=== PATIENT | female | born 1980 | race Two or more races ===

== ENCOUNTER 2017-09-18 22:02 | Emergency (ER) | payer SELFPAY ==
[~2017-09-18] VITALS: Ht 154.9 cm; Wt 74.8 kg
[2017-09-18] MEDS ORDERED: Fluconazole 100mg tab ORAL ONE (22:45)
--- NOTE | 2017-09-18 22:46 | Emergency Room Report ---
History of Present Illness General Chief Complaint: Female Urogenital Problems Source: Patient Present Illness HPI 37-year-old female, history of diabetes, supposed to be on metformin but has not been compliant with her medication, presenting with increased thirst, also thick vaginal discharge and discomfort. Also with burning on urination. States that she has a yeast infection. She has not been compliant with her medications, has had increased thirst and urinary frequency. No fever chills chest pain shortness of breath nausea or vomiting. Allergies: Coded Allergies: No Known Allergies (Unverified , 09/18/17) Patient History Past Medical History: see triage record Past Surgical History: none Pertinent Family History: none Last Menstrual Period: Now: No : 1 Para: 1 Reviewed Nursing Documentation: PMH: Agreed; PSxH: Agreed Nursing Documentation-PMH Hx Diabetes: Yes Review of Systems All Other Systems: negative except mentioned in HPI Physical Exam Vital Signs Date Time Temp Pulse Resp B/P (MAP) Pulse Ox O2 Delivery O2 Flow Rate FiO2 09/18/17 22:06 98.3 74 14 136/86 98 98.2 Sp02 EP Interpretation: reviewed, normal General Appearance: alert, GCS 15, non-toxic, moderate distress Head: normocephalic, atraumatic Eyes: bilateral eye normal inspection, bilateral eye PERRL, bilateral eye EOMI ENT: normal ENT inspection, normal pharynx, normal voice, moist mucus membranes Neck: normal inspection, full range of motion, supple Respiratory: normal inspection, lungs clear, normal breath sounds, no respiratory distress, no retraction, no wheezing, speaking full sentences, chest symmetrical Cardiovascular #1: normal inspection, regular rate, rhythm, no edema, normal capillary refill Cardiovascular #2: 2+ radial (R), 2+ radial (L) Gastrointestinal: normal inspection, non tender, soft, non-distended, no guarding Musculoskeletal: normal inspection, back normal, normal range of motion, non- tender Neurologic: normal inspection, alert, oriented x3, responsive, motor strength/ tone normal, sensory intact, normal gait, speech normal Psychiatric: normal inspection, judgement/insight normal, memory normal Skin: normal inspection, normal color, no rash, warm/dry, well hydrated, normal turgor Medical Decision Making Diagnostic Impression: Primary Impression: Hyperglycemia Additional Impression: Yeast vaginitis ER Course 37-year-old female with dysuria, urinary frequency, polyuria DDX: Hyperglycemia rule out DKA, yeast infection, UTI Plan: Obtain labs, ua, fluids consider insulin ER course: Patient given 2 normal saline boluses Fluconazole ordered Patient with hyperglycemia, not in DKA. Given fluids, given 10 units of insulin. Vital signs stable repeat accu check 294 Disposition: Patient will be discharged home. She is can be discharged with metformin, states that she does not have anymore at home. I also instructed the patient that it is important for her to follow-up with her doctor within one week, if her sugars not well controlled she may need to be placed on additional medications by her primary care doctor Please note that this Emergency Department Report was dictated using [employer] systems engineer technology software, occasionally this can lead to erroneous entry secondary to interpretation by the dictation equipment. EKG Diagnostic Results EP Interpretation: Yes Rate: normal Rhythm: NSR ST Segments: No acute changes ASA given to patient: No Rhythm Strip EP Interpretation: Yes Rate: 70 Rhythm: NSR, no PVCs, no ectopy Laboratory Tests Test 09/18/17 22:17 09/18/17 22:40 Urine Color Pale yellow Urine Appearance Clear Urine pH 6.5 (4.5-8.0) Urine Specific Sandoval 1.005 (1.005-1.035) Urine Protein Negative (NEGATIVE) Urine Glucose (UA) 4+ (NEGATIVE) H Urine Ketones Negative (NEGATIVE) Urine Occult Blood 2+ (NEGATIVE) H Urine Nitrite Negative (NEGATIVE) Urine Bilirubin Negative (NEGATIVE) Urine Urobilinogen Normal MG/DL (0.0-1.0) Urine Leukocyte Esterase 1+ (NEGATIVE) H Urine RBC 0-2 /HPF (0 - 2) Urine WBC 0-2 /HPF (0 - 2) Urine Squamous Epithelial Cells Occasional /LPF Urine Bacteria None /HPF (NONE) Urine HCG, Qualitative Negative (NEGATIVE) White Blood Count 8.1 K/UL (4.8-10.8) Red Blood Count 5.38 M/UL (4.20-5.40) Hemoglobin 14.6 G/DL (12.0-16.0) Hematocrit 44.8 % (37.0-47.0) Mean Corpuscular Volume 83 FL (80-99) Mean Corpuscular Hemoglobin 27.2 PG (27.0-31.0) Mean Corpuscular Hemoglobin Concent 32.7 G/DL (32.0-36.0) Red Cell Distribution Width 12.6 % (11.6-14.8) Platelet Count 149 K/UL (150-450) L Mean Platelet Volume 11.1 FL (6.5-10.1) H Neutrophils (%) (Auto) 62.8 % (45.0-75.0) Lymphocytes (%) (Auto) 28.8 % (20.0-45.0) Monocytes (%) (Auto) 6.0 % (1.0-10.0) Eosinophils (%) (Auto) 1.6 % (0.0-3.0) Basophils (%) (Auto) 0.9 % (0.0-2.0) Sodium Level 135 MMOL/L (136-145) L Potassium Level 4.0 MMOL/L (3.5-5.1) Chloride Level 98 MMOL/L (98-107) Carbon Dioxide Level 27 MMOL/L (21-32) Anion Gap 11 mmol/L (5-15) Blood Urea Nitrogen 15 mg/dL (7-18) Creatinine 1.1 MG/DL (0.55-1.30) Estimate Glomerular Filtration Rate 56.5 mL/min (>60) Glucose Level 645 MG/DL (74-106) *H Calcium Level 8.5 MG/DL (8.5-10.1) Magnesium Level 1.7 MG/DL (1.8-2.4) L Total Bilirubin 0.5 MG/DL (0.2-1.0) Aspartate Amino Transferase (AST) 25 U/L (15-37) Alanine Aminotransferase (ALT) 61 U/L (12-78) Alkaline Phosphatase 229 U/L (46-116) H Total Protein 7.4 G/DL (6.4-8.2) Albumin 3.3 G/DL (3.4-5.0) L Globulin 4.1 g/dL Albumin/Globulin Ratio 0.8 (1.0-2.7) L Acetone Level Negative (NEGATIVE) Last Vital Signs Date Time Temp Pulse Resp B/P (MAP) Pulse Ox O2 Delivery O2 Flow Rate FiO2 09/18/17 22:06 98.3 74 14 136/86 98 98.2 Disposition: HOME, SELF-CARE Condition: Improved Scripts Metformin Hcl* (METFORMIN HCL*) 500 Mg Tablet 500 MG ORAL TWICE A DAY for 30 Days, #60 TAB Prov: Hui Lipscomb M.D. 09/19/17 Referrals: NOT CHOSEN [facility]/,REFERRING (PCP) Hui Lipscomb M.D. Sep 18, 2017 22:46
[2017-09-18 22:48] LABS: BASOPHILS % (AUTO) 0.9 % (0.0-2.0); EOSINOPHILS % (AUTO) 1.6 % (0.0-3.0); HEMATOCRIT 44.8 % (37.0-47.0); HEMOGLOBIN 14.6 G/DL (12.0-16.0); LYMPHOCYTES % (AUTO) 28.8 % (20.0-45.0); MEAN CORPUSCULAR VOLUME 83 FL (80-99); NEUTROPHILS % (AUTO) 62.8 % (45.0-75.0); PLATELET COUNT 149 K/UL (150-450); RED BLOOD COUNT 5.38 M/UL (4.20-5.40); RED CELL DISTRIBUTION WIDTH 12.6 % (11.6-14.8); WHITE BLOOD COUNT 8.1 K/UL (4.8-10.8)
[2017-09-18 22:50] LABS: APPEARANCE,URINE CLEAR; BILIRUBIN, URINE NEGATIVE (NEGATIVE); COLOR,URINE PALE YELLOW; GLUCOSE, URINE (UA) 4+ (NEGATIVE); KETONES,URINE NEGATIVE (NEGATIVE); LEUKOCYTE ESTERASE ,URINE 1+ (NEGATIVE); NITRITE,URINE NEGATIVE (NEGATIVE); PH,URINE 6.5 (4.5-8.0); PROTEIN,URINE NEGATIVE (NEGATIVE); UROBILINOGEN,URINE NORMAL MG/DL (0.0-1.0)
[2017-09-18 23:10] LABS: ALANINE AMINOTRANSFERASE 61 U/L (12-78); ALBUMIN 3.3 G/DL (3.4-5.0); ALBUMIN/GLOBULIN RATIO 0.8 (1.0-2.7); ALKALINE PHOSPHATASE 229 U/L (46-116); ANION GAP 11 mmol/L (5-15); ASPARTATE AMINO TRANSFERASE 25 U/L (15-37); BILIRUBIN,TOTAL 0.5 MG/DL (0.2-1.0); BLOOD UREA NITROGEN 15 mg/dL (7-18); CALCIUM 8.5 MG/DL (8.5-10.1); CARBON DIOXIDE 27 MMOL/L (21-32); CHLORIDE 98 MMOL/L (98-107); CREATININE 1.1 MG/DL (0.55-1.30); SODIUM 135 MMOL/L (136-145)
[2017-09-19] MEDS ORDERED: METFORMIN HCL500 M1 ORAL (00:37)
[2017-09-19 01:17] VITALS: BP 128/89
[2017-09-19 01:21] VITALS: BP 128/89
--- NOTE | 2017-09-20 18:13 | Cardiology Report ---
APPROVED REPORT EKG Measurement Heart [id number] Normal sinus rhythm Nonspecific T wave abnormality Abnormal ECG
== END 2017-09-19 01:22 | disposition home or self-care (01) ==
LOC: EMR 22:26
DX: E11.65 Type 2 diabetes mellitus with hyperglycemia (principal); Z91.14 Patient's other noncompliance with medication regimen; B37.3 Candidiasis of vulva and vagina
CPT/HCPCS: 36415; 80053; 81003; 81025; 82009; 82962; 83735; 85025; 93005; 96374; 96375; 99284; J1815

== ENCOUNTER → 2017-10-30 | Emergency (ER) | payer SELFPAY ==
[~2017-10-30] VITALS: Ht 154.9 cm; Wt 72.6 kg
[~2017-10-30] MED LIST: METFORMIN HCL500 M1 ORAL
[2017-10-30 12:58] VITALS: BP 114/80
--- NOTE | 2017-10-30 13:47 | Emergency Room Report ---
History of Present Illness General Chief Complaint: Abdominal Pain Source: Patient Present Illness HPI Patient states that she got an MRI for chronic low back pain that she had been having for many years. She states this was done by [employer]. She states she received the report and on the impression it says that she has a large cystic focus with internal debris in the left ovary which measures 4.5 cm x 3.9 cm and its widest dimensions. This is consistent with a hemorrhagic ovarian cyst. Suggest ultrasound follow-up. The patient states that she was told to follow up with her primary care physician for an ultrasound. She has some pain occasionally in this location. She denies pain at this time. She has chronic back pain. She denies fever or chills. She denies abnormal vaginal discharge or bleeding. She has no other complaints. Allergies: Coded Allergies: No Known Allergies (Unverified , 09/18/17) Patient History Past Medical History: none, DM Social History: Denies: smoking, alcohol use, drug use Last Menstrual Period: 09/2016 Now: No Reviewed Nursing Documentation: PMH: Agreed; PSxH: Agreed Nursing Documentation-PMH Past Medical History: No History, Except For Hx Diabetes: Yes Review of Systems All Other Systems: negative except mentioned in HPI Physical Exam Vital Signs Date Time Temp Pulse Resp B/P (MAP) Pulse Ox O2 Delivery O2 Flow Rate FiO2 10/30/17 12:58 98.1 80 16 114/80 95 Room Air 98.1 Sp02 EP Interpretation: reviewed, normal General Appearance: no apparent distress, alert, GCS 15, non-toxic Head: normocephalic, atraumatic Eyes: bilateral eye normal inspection, bilateral eye PERRL ENT: hearing grossly normal, normal pharynx, no angioedema, normal voice Neck: full range of motion, supple/symm/no masses Respiratory: no respiratory distress, no retraction, no accessory muscle use, speaking full sentences Gastrointestinal: soft, non-distended, no guarding, no rebound, tenderness - mild ttp LLQ Rectal: deferred Musculoskeletal: gait/station normal Neurologic: alert, oriented x3, responsive, motor strength/tone normal, sensory intact, speech normal Psychiatric: judgement/insight normal, memory normal, mood/affect normal, no suicidal/homicidal ideation Skin: normal color, no rash, warm/dry, well hydrated Medical Decision Making Diagnostic Impression: Primary Impression: Ovarian cyst ER Course This patient has an MRI that shows findings consistent with a left ovarian cyst. The patient's abdominal exam is benign. I did offer the patient a pelvic ultrasound, however, after further discussion this patient to get this as an outpatient and that I did not feel this was a medical emergency, the patient decided to leave and obtain the ultrasound by her primary care physician. She states that she has a child that she needs to attend to and that if she can do it as an outpatient she would prefer that. I did educate her that she would need an pelvic ultrasound and then a repeat pelvic ultrasound again in 2-3 cycles to monitor the cyst. Overall, the patient's evaluation is benign and reassuring. The patient was given very close return precautions and follow-up instructions. The labs and ultrasound that I had ordered were not done or obtained secondary to the patient preferring to follow-up with her primary care physician as an outpatient. Last Vital Signs Date Time Temp Pulse Resp B/P (MAP) Pulse Ox O2 Delivery O2 Flow Rate FiO2 10/30/17 12:58 98.1 80 16 114/80 95 Room Air 98.1 Disposition: HOME, SELF-CARE Condition: Stable RUBIN MONTERROSO D.O. October 30, 2017 13:47
== END | disposition home or self-care (01) ==
LOC: EMR 13:32
DX: N83.202 Unspecified ovarian cyst, left side (principal); M54.5 Low back pain; E11.9 Type 2 diabetes mellitus without complications
CPT/HCPCS: 99282

== ENCOUNTER 2017-12-03 16:13 | Emergency (ER) | payer SELFPAY ==
[~2017-12-03] VITALS: Ht 154.9 cm; Wt 69.4 kg
[2017-12-03 17:03] VITALS: BP 123/78
--- NOTE | 2017-12-03 17:28 | Emergency Room Report ---
History of Present Illness General Chief Complaint: Vaginal Source: Patient Present Illness HPI 37-year-old female presents to the emergency department for evaluation of left- sided ovarian cyst which was incidentally found on her MRI. Patient denies pain at the moment but she states that 2 months she was having chronic left- sided adnexal pain that she would rate as 6 out of 10 in severity with radiation to the back. Patient is worried that this could be cancer as she states that many of her family members have due to ovarian cancer. Patient denies nausea, vomiting. Patient states that she is not sexually active with the opposite sex. She denies urinary frequency, hematuria, urgency , vaginal discharge, swollen tender lymph nodes, night sweats, significant changes in weight. Patient denies acute onset of her left-sided adnexal pain. She denies tenderness to palpation. She denies trauma or fall. She states that she is currently on her menstrual cycle however she reports that she had a period twice this month. Pt. denies excessive blood loss, dizziness or syncope. Allergies: Coded Allergies: No Known Allergies (Unverified , 09/18/17) Patient History Past Medical History: see triage record Past Surgical History: none Pertinent Family History: other - cancer Last Menstrual Period: 11/21/17 Now: No Reviewed Nursing Documentation: PMH: Agreed; PSxH: Agreed Nursing Documentation-PMH Hx Diabetes: Yes Review of Systems All Other Systems: negative except mentioned in HPI Physical Exam Vital Signs Date Time Temp Pulse Resp B/P (MAP) Pulse Ox O2 Delivery O2 Flow Rate FiO2 12/03/17 16:25 98.2 86 19 123/78 96 Room Air 98.2 Sp02 EP Interpretation: reviewed, normal General Appearance: no apparent distress, alert, GCS 15, non-toxic Head: normocephalic, atraumatic ENT: hearing grossly normal, normal voice Neck: full range of motion Respiratory: lungs clear, normal breath sounds, speaking full sentences Cardiovascular #1: regular rate, rhythm Rectal: deferred Genitourinary: adnexa normal, deferred - pelvic deferred. Musculoskeletal: back normal, gait/station normal, normal range of motion, non- tender Neurologic: alert, oriented x3, responsive, motor strength/tone normal, sensory intact, normal gait, speech normal, grossly normal Psychiatric: judgement/insight normal, anxious - moderate anxiousness/ worry regarding incidental finging. given family hx. Skin: normal color, no rash, warm/dry Medical Decision Making PA Attestation Dr. Lipscomb is my supervising Physician whom patient management has been discussed with. Diagnostic Impression: Primary Impression: Ovarian cyst Qualified Codes: N83.209 - Unspecified ovarian cyst, unspecified side Additional Impression: Family history of cancer ER Course 37-year-old female presents to the emergency department for evaluation of left- sided ovarian cyst which was incidentally found on her MRI. Patient denies pain at the moment but she states that 2 months she was having chronic left- sided adnexal pain that she would rate as 6 out of 10 in severity with radiation to the back. Patient is worried that this could be cancer as she states that many of her family members have due to ovarian cancer. Patient denies nausea, vomiting. Patient states that she is not sexually active with the opposite sex. She denies urinary frequency, hematuria, urgency , vaginal discharge, swollen tender lymph nodes, night sweats, significant changes in weight. Patient denies acute onset of her left-sided adnexal pain. She denies tenderness to palpation. She denies trauma or fall. She states that she is currently on her menstrual cycle however she reports that she had a period twice this month. Pt. denies excessive blood loss, dizziness or syncope. Ddx considered but are not limited to Diverticulitis, acute appy, ovarian torsion, ectopic , PID tubo-ovarian abscess, ovarian cyst. Vital signs: are WNL, pt. is afebrile H&PE are most consistent with suspected ovarian cyst, Clinical presentation does not suggest acute torsion. No tenderness ORDERS: -Pelvic exam Complete: Pt. deferred. ED INTERVENTIONS: - I discussed with this patient that her presentation at the moment does not make me suspicious of an acute emergent condition. Encouraged patient to follow up with an [facility] regarding incidental findings on her recent MRI. I discussed with this patient that if she has any changes in her symptoms such as worsening of pain or new symptoms she should return immediately to the ER and at that point we will evaluate her for possible emergent condition. I explained to this patient that checking for cancer is not a routine examination that is performed in the emergency department. DISCHARGE: At this time pt. is stable for d/c to home. Will provide printed patient care instructions, and any necessary prescriptions. Care plan and follow up instructions have been discussed with the patient prior to discharge. Last Vital Signs Date Time Temp Pulse Resp B/P (MAP) Pulse Ox O2 Delivery O2 Flow Rate FiO2 12/03/17 17:03 98.2 69 19 123/78 96 Room Air 98.2 Disposition: HOME, SELF-CARE Condition: Stable Scripts Ibuprofen* (MOTRIN*) 600 Mg Tablet 600 MG ORAL THREE TIMES A DAY, #20 TAB 0 Refills Prov: Angelita Corbett 12/03/17 Referrals: NOT CHOSEN [facility],REFERRING (PCP) Patient Instructions: Ovarian Cyst Additional Instructions: Take medications as directed. Follow up with an OBGYN within 3 days, even if your symptoms have resolved. * refer to provided list of primary care clinics if you do not already have a primary care provider. Return sooner to ED if new symptoms occur, or current symptoms become worse. - Please note that this Emergency Department Report was dictated using [employer].inmitochondrial disorders counselor technology software, occasionally this can lead to erroneous entry secondary to interpretation by the dictation equipment. Angelita Corbett Dec 03, 2017 17:28
[2017-12-03] MEDS ORDERED: IBUPROFEN600 MG ORAL (17:38)
[2017-12-03 18:01] VITALS: BP 123/78
== END 2017-12-03 18:02 | disposition home or self-care (01) ==
LOC: EMR 17:00
DX: N83.209 Unspecified ovarian cyst, unspecified side (principal); E11.9 Type 2 diabetes mellitus without complications; Z80.41 Family history of malignant neoplasm of ovary
CPT/HCPCS: 99283

== ENCOUNTER 2019-01-15 11:08 | Emergency (ER) | payer MEDICAID ==
[~2019-01-15] VITALS: Ht 154.9 cm; Wt 72.6 kg
[~2019-01-15 11:08] MED LIST changes: +IBUPROFEN600 MG ORAL
[2019-01-15 11:43] VITALS: BP 105/69
[2019-01-15] MEDS ORDERED: ZOFRAN4 M3 ORAL (11:44)
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
--- NOTE | 2019-01-15 11:46 | NUR ---
ED Nurse Note: pt walked in c/o diarrhea x 2 days. ERMD eval done urine sent to lab pt denies pain, n/v.
[2019-01-15 12:01] VITALS: BP 105/69
--- NOTE | 2019-01-15 12:02 | NUR ---
ER DISCHARGE NOTE: Patient is cleared to be discharged per ERMD, pt is aox4, on room air, with stable vital signs. pt was given dc and prescription instructions, pt was able to verbalize understanding, pt id band and iv site removed without complications. pt is able to ambulate with steady gait. pt took all belongings.
== END 2019-01-15 11:56 | disposition home or self-care (01) ==
LOC: EMR 11:21
DX: R19.7 Diarrhea, unspecified (principal); R11.2 Nausea with vomiting, unspecified; E11.9 Type 2 diabetes mellitus without complications
CPT/HCPCS: 81025; 99283

== ENCOUNTER 2019-08-17 18:45 | Emergency (ER) | payer MEDICAID ==
[~2019-08-17] VITALS: Ht 154.9 cm; Wt 72.6 kg
[~2019-08-17 18:45] MED LIST changes: +ZOFRAN4 M3 ORAL
--- NOTE | 2019-08-17 19:00 | NUR ---
ED Nurse Note: PT WALKED IN TO ED C/O UNCONTROLLED/ELEVATED BS. PT STATES BS OF 396 TODAY. PT STATES TAKING METFORMIN LAST ON 3PM WITH MEAL. PT VSS, BS AT BEDSIDE 186. WILL CONTINUE TO MONITOR PATIENT.
--- NOTE | 2019-08-17 19:13 | Emergency Room Report ---
History of Present Illness General Chief Complaint: Abnormal Labs Source: Patient Present Illness HPI Patient presents for complaints of elevated glucose levels patient reports that She has had readings in the 300 range This all started when she caught a cold several days ago She still has a mild cough otherwise denies any chest pain denies any vomiting or diarrhea patient's Accu-Chek at bedside was 160 and reports that this is improved compared to previous Denies any focal weakness denies any headache Denies any neck pain or photophobia Allergies: Coded Allergies: No Known Allergies (Unverified , 09/18/17) Patient History Past Medical History: see triage record Last Menstrual Period: 1 month Now: No Reviewed Nursing Documentation: PMH: Agreed; PSxH: Agreed Nursing Documentation-PMH Past Medical History: No History, Except For Hx Diabetes: Yes Hx Gastrointestinal Problems: Yes Review of Systems All Other Systems: negative except mentioned in HPI Physical Exam Vital Signs Date Time Temp Pulse Resp B/P (MAP) Pulse Ox O2 Delivery O2 Flow Rate FiO2 08/17/19 18:56 98.2 95 20 128/84 (99) 97 Room Air Sp02 EP Interpretation: reviewed, normal General Appearance: well appearing, no apparent distress Head: normocephalic, atraumatic Eyes: bilateral eye PERRL, bilateral eye EOMI ENT: hearing grossly normal, normal pharynx, TMs + canals normal, uvula midline Neck: full range of motion, supple, no meningismus, no bony tend Respiratory: lungs clear, normal breath sounds, no rhonchi, no respiratory distress, no retraction, no accessory muscle use Cardiovascular #1: normal peripheral pulses, regular rate, rhythm, no edema, no gallop, no JVD, no murmur Gastrointestinal: normal bowel sounds, non tender, soft, no mass, no organomegaly, non-distended, no guarding, no hernia, no pulsatile mass, no rebound Genitourinary: no CVA tenderness Musculoskeletal: normal inspection Neurologic: motor strength/tone normal, manager marketing sales III-XII nml as tested, oriented x3 , sensory intact, responsive Psychiatric: mood/affect normal Skin: no rash Lymphatic: normal inspection, no adenopathy Medical Decision Making Diagnostic Impression: Primary Impression: Hyperglycemia ER Course Multiple differentials including but not limited to sepsis, poor glucose control , poor diet, dehydration, acidosis entertained Patient's blood work does not reveal any signs of acidosis Glucose level has improved patient was also further IV hydrated Patient does have URI symptoms Possibly causing difficulty with glucose control patient is encouraged to follow closely with primary physician and discuss further testing and intervention Labs Test 08/17/19 19:00 08/17/19 19:45 Urine Color Pale yellow Urine Appearance Slightly cloudy Urine pH 5 (4.5-8.0) Urine Specific [place] 1.020 (1.005-1.035) Urine Protein Negative (NEGATIVE) Urine Glucose (UA) Negative (NEGATIVE) Urine Ketones Negative (NEGATIVE) Urine Blood Negative (NEGATIVE) Urine Nitrite Negative (NEGATIVE) Urine Bilirubin Negative (NEGATIVE) Urine Urobilinogen Normal MG/DL (0.0-1.0) Urine Leukocyte Esterase 1+ (NEGATIVE) Urine RBC 0-2 /HPF (0 - 2) Urine WBC 2-4 /HPF (0 - 2) Urine Squamous Epithelial Cells Many /LPF (NONE/OCC) Urine Bacteria Few /HPF (NONE) White Blood Count 12.5 K/UL (4.8-10.8) Red Blood Count 4.76 M/UL (4.20-5.40) Hemoglobin 12.8 G/DL (12.0-16.0) Hematocrit 38.1 % (37.0-47.0) Mean Corpuscular Volume 80 FL (80-99) Mean Corpuscular Hemoglobin 27.0 PG (27.0-31.0) Mean Corpuscular Hemoglobin Concent 33.7 G/DL (32.0-36.0) Red Cell Distribution Width 11.6 % (11.6-14.8) Platelet Count 215 K/UL (150-450) Mean Platelet Volume 10.7 FL (6.5-10.1) Neutrophils (%) (Auto) 60.2 % (45.0-75.0) Lymphocytes (%) (Auto) 28.6 % (20.0-45.0) Monocytes (%) (Auto) 6.5 % (1.0-10.0) Eosinophils (%) (Auto) 3.1 % (0.0-3.0) Basophils (%) (Auto) 1.7 % (0.0-2.0) Sodium Level 140 MMOL/L (136-145) Potassium Level 3.6 MMOL/L (3.5-5.1) Chloride Level 103 MMOL/L (98-107) Carbon Dioxide Level 25 MMOL/L (21-32) Anion Gap 13 mmol/L (5-15) Blood Urea Nitrogen 14 mg/dL (7-18) Creatinine 0.7 MG/DL (0.55-1.30) Estimat Glomerular Filtration Rate > 60 mL/min (>60) Glucose Level 210 MG/DL (74-106) Calcium Level 8.7 MG/DL (8.5-10.1) Total Bilirubin 0.4 MG/DL (0.2-1.0) Aspartate Amino Transf (AST/SGOT) 16 U/L (15-37) Alanine Aminotransferase (ALT/SGPT) 30 U/L (12-78) Alkaline Phosphatase 136 U/L (46-116) Total Protein 7.1 G/DL (6.4-8.2) Albumin 3.1 G/DL (3.4-5.0) Globulin 4.0 g/dL Albumin/Globulin Ratio 0.8 (1.0-2.7) Chest X-Ray Diagnostic Results Chest X-Ray Diagnostic Results : Chest X-Ray Ordered: Yes # of Views/Limited/Complete: 1 View Indication: Shortness of Breath EP Interpretation: Yes Interpretation: no consolidation, no effusion, no pneumothorax Impression: No acute disease Electronically Signed by: Dariusz Dc DO Last Vital Signs Date Time Temp Pulse Resp B/P (MAP) Pulse Ox O2 Delivery O2 Flow Rate FiO2 08/17/19 18:56 98.2 95 20 128/84 (99) 97 Room Air Status: improved Disposition: HOME, SELF-CARE Condition: Improved Additional Instructions: Patient is provided with the discharge instructions notified to follow up with primary doctor in the next 2-3 days otherwise return to the er with any worsening symptoms. Please note that this report is being documented using [employer] technology. This can lead to erroneous entry secondary to incorrect interpretation by the dictating instrument. Dariusz Dc DO Aug 17, 2019 19:13
[2019-08-17 19:29] LABS: APPEARANCE,URINE SLIGHTLY CLOUDY; BILIRUBIN, URINE NEGATIVE (NEGATIVE); COLOR,URINE PALE YELLOW; GLUCOSE, URINE (UA) NEGATIVE (NEGATIVE); KETONES,URINE NEGATIVE (NEGATIVE); LEUKOCYTE ESTERASE ,URINE 1+ (NEGATIVE); NITRITE,URINE NEGATIVE (NEGATIVE); PH,URINE 5 (4.5-8.0); PROTEIN,URINE NEGATIVE (NEGATIVE); UROBILINOGEN,URINE NORMAL MG/DL (0.0-1.0)
--- NOTE | 2019-08-17 19:30 | NUR ---
ED Nurse Note: BLOOD AND URINE COLLECTED AND SENT TO LAB
--- NOTE | 2019-08-17 19:45 | NUR ---
ED Nurse Note: XR AT BEDSIDE
[2019-08-17 20:17] VITALS: BP 124/69
[2019-08-17 20:36] LABS: BASOPHILS % (AUTO) 1.7 % (0.0-2.0); EOSINOPHILS % (AUTO) 3.1 % (0.0-3.0); HEMATOCRIT 38.1 % (37.0-47.0); HEMOGLOBIN 12.8 G/DL (12.0-16.0); LYMPHOCYTES % (AUTO) 28.6 % (20.0-45.0); MEAN CORPUSCULAR VOLUME 80 FL (80-99); MONOCYTES % (AUTO) 6.5 % (1.0-10.0); NEUTROPHILS % (AUTO) 60.2 % (45.0-75.0); PLATELET COUNT 215 K/UL (150-450); RED BLOOD COUNT 4.76 M/UL (4.20-5.40); RED CELL DISTRIBUTION WIDTH 11.6 % (11.6-14.8); WHITE BLOOD COUNT 12.5 K/UL (4.8-10.8)
[2019-08-17 20:43] LABS: ANION GAP 13 mmol/L (5-15); BLOOD UREA NITROGEN 14 mg/dL (7-18); CALCIUM 8.7 MG/DL (8.5-10.1); CARBON DIOXIDE 25 MMOL/L (21-32); CHLORIDE 103 MMOL/L (98-107); CREATININE 0.7 MG/DL (0.55-1.30); POTASSIUM 3.6 MMOL/L (3.5-5.1); SODIUM 140 MMOL/L (136-145)
[2019-08-17 20:48] LABS: ALANINE AMINOTRANSFERASE 30 U/L (12-78); ALBUMIN 3.1 G/DL (3.4-5.0); ALBUMIN/GLOBULIN RATIO 0.8 (1.0-2.7); ALKALINE PHOSPHATASE 136 U/L (46-116); ASPARTATE AMINO TRANSFERASE 16 U/L (15-37); BILIRUBIN,TOTAL 0.4 MG/DL (0.2-1.0)
[2019-08-17 21:45] VITALS: BP 124/69
--- NOTE | 2019-08-17 21:45 | NUR ---
ER DISCHARGE NOTE: Patient is cleared to be discharged per ERMD, pt is aox4, on room air, with stable vital signs. pt was given dc instructions, pt was able to verbalize understanding, pt id band and iv site removed without complications. pt is able to ambulate with steady gait. pt took all belongings.
--- NOTE | 2019-08-18 11:57 | Diagnostic Imaging Report ---
Indication: Dyspnea Comparison: None A single view chest radiograph was obtained. Findings: Cardiomediastinal appearance is within normal limits for age. The lungs are clear. Pulmonary vascularity is appropriate. The diaphragmatic contour is smooth and costophrenic angles are sharp. No pleural effusions are identified. The bones are unremarkable. Impression: No acute findings
== END 2019-08-17 21:45 | disposition home or self-care (01) ==
LOC: EMR 20:53
DX: E11.65 Type 2 diabetes mellitus with hyperglycemia (principal)
CPT/HCPCS: 36415; 71045; 80053; 81003; 82962; 85025; 96360; J7030; Z7502; 99284